=== PATIENT | female | born 1990 | race Caucasian/White ===

== ENCOUNTER 2023-05-26 02:20 | Emergency (ER) | payer OTHER, SELFPAY ==
[2023-05-26 02:21] VITALS: BP 113/77; PULSE 83; RESP 16; TEMP 36.6; O2SAT 99
[2023-05-26 03:21] LABS: Absolute Lymphocyte Count 1.33 X10^3/uL (0.83-4.51); Absolute Neutrophil Count 5.6 X10^3/uL (2.0-7.7); Basophil# 0.02 X10^3/uL; Basophil% 0.3 % (0-1); Eosinophil# 0.12 X10^3/uL; Eosinophils% 1.6 % (0-5); Hematocrit 35.5 % (37-47); Hemoglobin 11.5 g/dL (12.0-15.0); Lymphocyte # 1.33 X10^3/ul (0.83-4.51); Lymphocyte % 17.3 % (19-41); Mean Corp Hgb Conc 32.4 g/dL (32-36); Mean Corpuscular Hgb 26.4 pg (27.0-32.0); Mean Corpuscular Volume 81.6 fL (81-99); Mean Platelet Vol. 10.4 fl (6.2-12.0); Monocyte# 0.59 X10^3/uL; Monocyte% 7.7 % (0-10); NRBC Flagged by Analyzer 0 % (0-5); Neutrophil # 5.61 X10^3/uL (2.7-7.7); Platelet Count 233 K/mm3 (150-450); RBC Distribution Width CV 13.2 % (11.6-14.6); RBC Distribution Width SD 38.8 fl (35.1-43.9); Red Blood Count 4.35 M/mm3 (4.2-5.4); White Blood Count 7.7 K/mm3 (4.4-11.0)
[2023-05-26] MEDS: Ketorolac 30 MG/ML Syringe IV (03:36)
[2023-05-26] MEDS: 0.9% Normal Saline (1000mL) 1,000 ML 999 ML IV (03:36)
[2023-05-26 03:40] LABS: Internal QC Validated? YES +Cl - CLEAR BKGD; Pregnancy, Serum, hCG Quali. NEGATIVE Negative
--- NOTE | 2023-05-26 03:40 | RAD_ITS ---
INDICATION: cough EXAMINATION/TECHNIQUE: X-RAY - XR Chest 1 View COMPARISON: None. FINDINGS: LINES/DEVICES: None. LUNGS: There are few faint, small nodular opacities at right upper lobe. No sizable pleural effusion. No pneumothorax detected. MEDIASTINUM AND CARDIOVASCULAR STRUCTURES: Heart size within normal limits. Mediastinal contours unremarkable. BONES AND SOFT TISSUES: No acute findings. RAD/Chest 1 View (Portable) IMPRESSION: Small right upper lobe nodular opacities. Favor infection/infiltrate. Recommend follow-up imaging in a few weeks past treatment to document clearing. Electronically Signed: Adonay Fernandez MD at 4:28 EST ,
[2023-05-26 03:57] LABS: Anion Gap 7 (5-15); BUN 10 mg/dL (7-18); BUN/Creat Ratio 13.6 RATIO (10-20); Calcium,Total 8.9 mg/dL (8.5-10.1); Chloride 107 mmol/L (98-107); Creatinine, Serum 0.74 mg/dL (0.55-1.02); EST Glomerular Filtration Rate 97 mL/min (>60); Est Glom Filt Rate - Afr Amer 117 mL/min (>60); Glucose 99 mg/dL (74-106); Magnesium 1.8 mg/dL (1.6-2.6); Potassium 4.3 mmol/L (3.5-5.1); Sodium Level 138 mmol/L (136-145)
--- NOTE | 2023-05-26 05:36 | EX.ED.DYSGE1 ---
HPI History of Present Illness Chief Complaint: General Illness Informant: patient, spouse/S.O. and EMS Narrative Narrative: Patient is a 32-year-old female who states she has had 2 to 3 days of generalized muscle aches and pains with congestion and cough. She states that secondary to the cough she brought Delsym [id number]. She states the instructions are to take 10 mL twice a day approximately every 12 hours that she took a dose at 7 or 8 PM and then again around 10 or 11 PM but states that she did not take more than the 20 mL which was recommended on the bottle. Since taking the second dose however she reports feeling lightheaded and dizzy and has had bouts of loose stool/diarrhea and felt like she was going to pass out so therefore EMS was called to bring her in for evaluation. [facility] Medical History (Updated 05/26/23 @ 06:[address] Fermin Francis, ) Cholecystectomy planned Hiatal hernia Home Medications levofloxacin 500 mg tablet 500 mg PO DAILY 6 days #6 tabs 05/26/23 [Rx Last Taken Unknown] Allergy/AdvReac Type Severity Reaction Status Date / Time No Known Allergies Allergy Verified 05/26/23 03:09 Social History Smoking Status: Never smoker [facility] ED Constitutional Constitutional ED: Denies chills or fever(s) Eyes Eyes: Denies change in vision ENT ENT ED: Reports rhinorrhea and sore throat Cardiovascular Cardiovascular: Denies chest pain Respiratory/Chest Respiratory/Chest: Reports cough; Denies dyspnea Gastrointestinal Gastrointestinal: Reports diarrhea and nausea; Denies abdominal pain or vomiting Genitourinary Genitourinary ED: Denies dysuria Musculoskeletal Musculoskeletal: Reports myalgias Integumentary Denies rash Neurologic Neurologic: Reports weakness; Denies headache(s) Hematologic/Lymphatic Hematologic/Lymphatic: Denies easy bleeding or easy bruising EXAM Physical Exam Const Vital Signs: 05/26/23 02:21 05/26/23 02:21 05/26/23 06:25 Temperature 98 F Temperature Source Temporal Pulse Rate 83 68 Respiratory Rate 16 16 Respiratory Effort Short of Breath Respiratory Pattern Normal Blood Pressure 113/77 128/77 H Blood Pressure Mean 89 94 Pulse Ox 99 97 Oxygen Delivery Method Room Air Positive well nourished and well developed General Appearance ED: well developed; Negative for pallor HEENT HEENT Narrative: There is cobblestoning the posterior pharynx consistent with sinus drainage without airway edema or compromise No signs of infection noted in the posterior pharynx His membranes are dry and tacky Eyes PERRL and EOMs intact bilaterally General Eye ED: Negative for scleral icterus Neck supple Neck Narrative: No nuchal rigidity or meningeal signs noted Chest Wall palpation of chest normal Resp normal respiratory effort Resp Narrative: Breath sounds are diminished throughout with faint expiratory wheezing bilateral upper lobes however no nasal flaring retractions tachypnea or accessory muscle use Cardio regular rate and regular rhythm Rate: other Other Details: Heart is regular rate and rhythm without murmurs rubs or gallops Radial and carotid pulses are equal and symmetric GI non-tender and non-distended GI Narrative: Abdomen is soft nontender nondistended with hyperactive bowel sounds. No voluntary guarding or rigidity or pulsatile mass. Auscultation: hyperactive bowel sounds Palpation: soft Extremity normal to inspection Extremity Narrative: No asymmetric edema no pitting edema negative Homans' sign bilaterally Neuro oriented x3, CN's II-XII intact bilaterally and no sensory deficits noted Sensorium / Orientation: alert Motor Exam: strength 5/5 throughout Psych mental status grossly normal Skin Skin Narrative: Skin turgor is increased General Skin Exam: Negative for jaundice or pallor MDM MDM MDM Narrative Medical decision making narrative: Patient presented to the ER with stable vitals and reported symptoms consistent/concerning for upper respiratory tract infection such as COVID versus influenza versus RSV. There is also concern for pneumonia based on her symptoms and based on her physical exam there is concern for acute blood loss anemia versus dehydration or acute kidney injury. Basic labs were obtained which revealed no clinically significant findings. Chest x-ray questioned a right upper lobe pneumonia. At this time the patient is not showing signs of septicemia and she is not hypoxic or in respiratory distress and after 1 L of fluid she is able to ambulate without any lightheadedness or near syncope. Therefore do not feel there is need for admission was to be placed on antibiotics secondary to the pneumonia and is otherwise safe for discharge. History & Record Review Discussion w/independent historian: Patient and Significant other Lab Data Attestation: I reviewed the patient's lab results. Labs: Laboratory Results - last 24 hr 05/26/23 03:14 WBC 7.7 RBC 4.35 Hgb 11.5 L Hct 35.5 L MCV 81.6 MCH 26.4 L MCHC 32.4 RDW Std Deviation 38.8 RDW Coeff of Darrian 13.2 Plt Count 233 MPV 10.4 Immature Gran % (Auto) 0.100 Neut % (Auto) 73.0 H Lymph % (Auto) 17.3 L [place] % (Auto) 7.7 Eos % (Auto) 1.6 Baso % (Auto) 0.3 Absolute Neuts (auto) 5.6 Absolute Lymphs (auto) 1.33 Nucleated RBC % 0 Sodium 138 Potassium 4.3 Chloride 107 Carbon Dioxide 24.0 Anion Gap 7 BUN 10 Creatinine 0.74 Est GFR (MDRD) Af Amer 117 Est GFR (MDRD) Non-Af 97 BUN/Creatinine Ratio 13.6 Glucose 99 Calcium 8.9 Magnesium 1.8 Serum , Qual NEGATIVE Radiography Diagnostic Testing: Clinical Impression(s) from Imaging Studies Chest X-Ray 05/26/23 03:40 IMPRESSION: Small right upper lobe nodular opacities. Favor infection/infiltrate. Recommend follow-up imaging in a few weeks past treatment to document clearing. Electronically Signed: Adonay Fernandez MD at 4:28 EST , Chest X ray as interpreted by the emergency medicine physician reveals questionable opacity in the right upper lobe concerning for atelectasis versus infiltrate Discharge Plan Triage Chief Complaint: General Illness ED Provider: Fermin Francis Dx/Rx/DC Orders Clinical Impression: Pneumonia, Dehydration Instructions: ED Dehydration (Adult), ED Pneumonia (Adult) Prescriptions: New levofloxacin 500 mg tablet 500 mg PO DAILY 6 Days Qty: 6 0RF Primary Care Provider: Jaron Gonzalez Referrals: Jaron Gonzalez DO [Primary Care Provider] - Activity Restrictions/Additional Instructions: Keep yourself well-hydrated as your exam today showed mild dehydration. There is also a small pneumonia in the right upper lobe and therefore take the Levaquin/levofloxacin once a day to help resolve this. You were given your first dose of antibiotic in the ER so you do not need to take your second dose until Thursday Disposition Disposition: Home, Self Care Discharge Date/Time: 05/26/23 06:25 Capacity Legal Chemistry Department Chair Reflex Medical hold order details:: IF a medical hold is selected below, a suggested order for a MEDICAL HOLD will reflex upon signing the document. Next of kin: [place] law dictates a PRIORITY LIST for identifying legal decision-maker/legal next of kin in the following order (LNOK): 1st: The patient?s legal guardian, if any 2nd: The patient's spouse (if status is questionable, consult Risk Management) 3rd: The patient?s adult child(eddie) (majority, if multiple children) 4th: The patient?s parents 5th: The patient?s adult siblings (majority, if multiple children siblings)
[2023-05-26] MEDS: levoFLOXacin 500 MG Tablet PO (06:21)
[2023-05-26 06:25] VITALS: BP 128/77; PULSE 68; RESP 16; O2SAT 97
== END 2023-05-26 06:25 | disposition home or self-care (01) ==
PROVIDERS: Emergency Provider Emergency Medicine; PCP Family Medicine; Visit Provider Emergency Medicine
DX: J18.9 Pneumonia, unspecified organism (principal); E86.0 Dehydration
CPT/HCPCS: 71045; 80048; 83735; 84703; 85025; 87631; 96374; 99283; J7030; A4216